=== PATIENT | male | born 1990 | race African-American/Black ===

== ENCOUNTER 2022-04-29 09:14 | Emergency (ER) | payer BC ==
[~2022-04-29] VITALS: Ht 177.8 cm; Wt 72.6 kg
[2022-04-29 09:20] VITALS: BP 125/81
[2022-04-29] MEDS ORDERED: IBUP800T27 PO ×2 (10:45→10:46)
[2022-04-29] MEDS ORDERED: IBUPROFEN 800 MG TAB PO ONE (10:45)
== END 2022-04-29 10:53 | disposition home or self-care (01) ==
LOC: ER 09:14
DX: S42.034A Nondisplaced fracture of lateral end of right clavicle, initial encounter for closed fracture (principal); S63.92XA Sprain of unspecified part of left wrist and hand, initial encounter; F12.10 Cannabis abuse, uncomplicated; Z90.89 Acquired absence of other organs; W01.0XXA Fall on same level from slipping, tripping and stumbling without subsequent striking against object, initial encounter; Y93.89 Activity, other specified; Y92.89 Other specified places as the place of occurrence of the external cause; Y99.8 Other external cause status
CPT/HCPCS: 73030; 73110; 73130